=== PATIENT | female | born 1990 | race African-American/Black ===

== ENCOUNTER 2017-12-26 20:43 | Inpatient (IN) | payer MEDICAID ==
[~2017-12-26] VITALS: Ht 154.9 cm; Wt 79.0 kg
[2017-12-26 21:08] VITALS: BP 103/56
[2017-12-26] MEDS ORDERED: NEWBORN KIT ONE (22:20)
[2017-12-26] MEDS ORDERED: OXYTOCIN 30U/ 0.9% NaCL 500ML 500 ML IV ONE (22:21)
[2017-12-26] MEDS: LACTATED RINGERS 1,000 ML IV SCH ×2 (22:25→23:02)
[2017-12-26] MEDS ORDERED: CALCIUM CARBONATE 500 MG TAB.CHEW PO PRN (22:30)
[2017-12-26] MEDS ORDERED: FENTANYL PF 100 MCG/2ML IV PRN (22:30)
[2017-12-26] MEDS ORDERED: TERBUTALINE 1 MG/ML, 1ML IVPush PRN (22:30)
[2017-12-26] MEDS ORDERED: FENTANYL PF 100 MCG/2ML IVPush PRN (22:30)
[2017-12-26] MEDS ORDERED: FENTANYL/BUPIV./NS/PF 250 ML EPIDCONT SCH (22:37)
[2017-12-26] MEDS ORDERED: BUPIVACAINE 0.25% ONE (22:48)
[2017-12-26 22:59] LABS: MEAN CORPUSCULAR HEMOGLOBIN 27.4 pg (27.0-34.8); MEAN CORPUSCULAR HGB CONC 33.3 g/dL (32.4-35.8); MEAN CORPUSCULAR VOLUME 82.5 fL (80-100); MEAN PLATELET VOLUME 9.2 fL (7.4-10.4); PLATELET COUNT 155 x10^3/uL (130-400); RED BLOOD COUNT 4.17 x10^6/uL (3.82-5.3); RED CELL DISTRIBUTION WIDTH 13.8 % (9.6-15.2)
[2017-12-26 23:49] LABS: BASOPHILS # (AUTO) 0.01 x10^3/uL (0-0.1); BASOPHILS % (AUTO) 0 % (0-1); EOSINOPHILS # (AUTO) 0.09 x10^3/uL (0-0.4); EOSINOPHILS % (AUTO) 1 % (1-7); LYMPHOCYTES # (AUTO) 1.74 x10^3/uL (1-3.4); LYMPHOCYTES % (AUTO) 22 % (22-44); MD SCAN; MONOCYTES # (AUTO) 0.94 x10^3/uL (0.2-0.8); MONOCYTES % (AUTO) 12 % (2-9); NEUTROPHILS # (AUTO) 5.31 x10^3/uL (1.8-6.8); NEUTROPHILS % (AUTO) 66 % (42-75)
[2017-12-26] MEDS ORDERED: OXYTOCIN 30U/ 0.9% NaCL 500ML 500 ML ONE (23:52)
[2017-12-26] MEDS ORDERED: MISOPROSTOL 200 MCG TABLET ONE (23:52)
[2017-12-26] MEDS ORDERED: LIDOCAINE/PF 1%, 30ML ONE (23:52)
[2017-12-27] MEDS: LACTATED RINGERS 1,000 ML IV SCH ×3 (00:03→17:55)
[2017-12-27] MEDS: D5%-LACTATED RINGERS 1,000 ML IV SCH ×2 (03:59→17:57)
[2017-12-27] MEDS ORDERED: OXYTOCIN 30U/ 0.9% NaCL 500ML 500 ML IV PRN (07:37)
[2017-12-27] MEDS ORDERED: FENTANYL PF 500 MCG, BUPIVACAINE/PF 0.5%, 30ML 62.5 ML in SODIUM CHLORIDE 0.9% 177.5 ML EPIDCONT SCH (14:30)
[2017-12-27] MEDS ORDERED: ONDANSETRON 2MG/ML, 2ML ONE ×2 (14:59→22:52)
[2017-12-27] MEDS: ONDANSETRON 2MG/ML, 2ML IVPush PRN ×2 (15:03→22:55)
[2017-12-27] MEDS ORDERED: FENTANYL PF 100 MCG/2ML ONE (15:20)
[2017-12-27] MEDS ORDERED: BUPIVACAINE 0.25% ONE (15:20)
[2017-12-27] MEDS ORDERED: IBUPROFEN 600 MG TABLET ONE (22:52)
[2017-12-27] MEDS ORDERED: OXYTOCIN 30U/ 0.9% NaCL 500ML 500 ML ONE (22:52)
[2017-12-27] MEDS: OXYTOCIN 30U/ 0.9% NaCL 500ML 500 ML IV SCH (23:50)
[2017-12-28] VITALS (13 sets, daily range): BP systolic 73–108; BP diastolic 44–66
[2017-12-28] MEDS ORDERED: CALCIUM CARBONATE 500 MG TAB.CHEW PO PRN
[2017-12-28] MEDS ORDERED: OXYcodone/APAP 5/325MG TABLET PO PRN
[2017-12-28] MEDS ORDERED: ONDANSETRON 2MG/ML, 2ML IV PRN
[2017-12-28] MEDS ORDERED: MISOPROSTOL 200 MCG TABLET PR PRN
[2017-12-28] MEDS ORDERED: BISACODYL 10 MG SUPP PR PRN
[2017-12-28] MEDS: IBUPROFEN 600 MG TABLET PO PRN ×3 (00:22→16:34)
[2017-12-28 06:33] LABS: MEAN CORPUSCULAR HEMOGLOBIN 27.7 pg (27.0-34.8); MEAN CORPUSCULAR VOLUME 83.9 fL (80-100); MEAN PLATELET VOLUME 8.9 fL (7.4-10.4); PLATELET COUNT 143 x10^3/uL (130-400); RED BLOOD COUNT 3.14 x10^6/uL (3.82-5.3); RED CELL DISTRIBUTION WIDTH 14.2 % (9.6-15.2)
[2017-12-28 07:09] LABS: BASOPHILS % (AUTO) 0 % (0-1); EOSINOPHILS # (AUTO) 0.04 x10^3/uL (0-0.4); EOSINOPHILS % (AUTO) 0 % (1-7); LYMPHOCYTES # (AUTO) 0.95 x10^3/uL (1-3.4); LYMPHOCYTES % (AUTO) 7 % (22-44); MD SCAN; MONOCYTES # (AUTO) 1.29 x10^3/uL (0.2-0.8); MONOCYTES % (AUTO) 9 % (2-9); NEUTROPHILS # (AUTO) 11.74 x10^3/uL (1.8-6.8); NEUTROPHILS % (AUTO) 84 % (42-75)
[2017-12-28] MEDS ORDERED: LACTATED RINGERS 1,000 ML IVBOLUS ONE (09:00)
[2017-12-28 09:01] LABS: BASOPHILS % (AUTO) 0 % (0-1); EOSINOPHILS # (AUTO) 0.08 x10^3/uL (0-0.4); EOSINOPHILS % (AUTO) 1 % (1-7); LYMPHOCYTES # (AUTO) 0.92 x10^3/uL (1-3.4); LYMPHOCYTES % (AUTO) 7 % (22-44); MD NO; MEAN CORPUSCULAR HEMOGLOBIN 27.1 pg (27.0-34.8); MEAN CORPUSCULAR HGB CONC 33.3 g/dL (32.4-35.8); MEAN CORPUSCULAR VOLUME 81.3 fL (80-100); MEAN PLATELET VOLUME 8.8 fL (7.4-10.4); MONOCYTES # (AUTO) 1.23 x10^3/uL (0.2-0.8); MONOCYTES % (AUTO) 9 % (2-9); NEUTROPHILS # (AUTO) 11.22 x10^3/uL (1.8-6.8); NEUTROPHILS % (AUTO) 83 % (42-75); PLATELET COUNT 148 x10^3/uL (130-400); RED BLOOD COUNT 2.86 x10^6/uL (3.82-5.3); RED CELL DISTRIBUTION WIDTH 14.1 % (9.6-15.2)
[2017-12-28] MEDS: PRENATAL VIT/IRON/FA 1 EACH TABLET PO SCH (09:15)
[2017-12-28] MEDS: DOCUSATE 100 MG CAPSULE PO PRN ×2 (09:15→20:56)
[2017-12-28] MEDS: OXYTOCIN 30U/ 0.9% NaCL 500ML 500 ML IV SCH ×2 (11:25→19:50)
[2017-12-28] MEDS ORDERED: ADENOSINE 6 MG/2 ML ONE (15:59)
[2017-12-28 16:21] LABS: MEAN CORPUSCULAR HEMOGLOBIN 28.2 pg (27.0-34.8); MEAN CORPUSCULAR HGB CONC 33.9 g/dL (32.4-35.8); MEAN PLATELET VOLUME 8.6 fL (7.4-10.4); PLATELET COUNT 155 x10^3/uL (130-400); RED CELL DISTRIBUTION WIDTH 14.3 % (9.6-15.2)
[2017-12-28 16:32] LABS: BASOPHILS # (AUTO) 0.02 x10^3/uL (0-0.1); BASOPHILS % (AUTO) 0 % (0-1); EOSINOPHILS # (AUTO) 0.07 x10^3/uL (0-0.4); EOSINOPHILS % (AUTO) 1 % (1-7); LYMPHOCYTES # (AUTO) 1.29 x10^3/uL (1-3.4); LYMPHOCYTES % (AUTO) 11 % (22-44); MD SCAN; MONOCYTES # (AUTO) 1.04 x10^3/uL (0.2-0.8); MONOCYTES % (AUTO) 8 % (2-9); NEUTROPHILS # (AUTO) 9.91 x10^3/uL (1.8-6.8); NEUTROPHILS % (AUTO) 80 % (42-75)
[2017-12-28] MEDS: FERROUS GLUCONATE 324 MG TABLET PO SCH (16:34)
[2017-12-28] MEDS ORDERED: ADENOSINE 6 MG/2 ML IVPush ONE (22:30)
[2017-12-28] MEDS ORDERED: MORPHINE SULFATE 4 MG/ML, 1ML ONE (22:45)
[2017-12-28 23:32] LABS: ANION GAP 8 mmol/L (5-15); CALCIUM 8.5 mg/dL (8.5-10.1); CHLORIDE 111 mmol/L (98-107); CREATININE 0.58 mg/dL (0.55-1.02)
[2017-12-29] MEDS ORDERED: MAGNESIUM SULFATE 3 GM in SODIUM CHLORIDE 0.9% 100 ML IV ONE
[2017-12-29] MEDS ORDERED: POTASSIUM CHLORIDE 20 MEQ in SODIUM CHLORIDE 0.9% 250 ML IV ONE
[2017-12-29 00:27] VITALS: BP 100/55
[2017-12-29] MEDS: IBUPROFEN 600 MG TABLET PO PRN ×2 (02:40→17:31)
[2017-12-29] MEDS: OXYTOCIN 30U/ 0.9% NaCL 500ML 500 ML IV SCH ×2 (05:19→15:50)
[2017-12-29 06:05] LABS: CHLORIDE 108 mmol/L (98-107)
[2017-12-29 06:10] LABS: ANION GAP 8 mmol/L (5-15); CALCIUM 8.5 mg/dL (8.5-10.1)
[2017-12-29 07:43] VITALS: BP 98/60
[2017-12-29] MEDS: PRENATAL VIT/IRON/FA 1 EACH TABLET PO SCH (08:28)
[2017-12-29] MEDS: FERROUS GLUCONATE 324 MG TABLET PO SCH ×2 (08:28→17:32)
[2017-12-29] MEDS ORDERED: POTASSIUM CHLORIDE 20 MEQ TAB.ER.PRT ONE (08:30)
[2017-12-29] MEDS ORDERED: POTASSIUM CHLORIDE 20 MEQ TAB.ER.PRT PO ONE (08:30)
[2017-12-29 14:04] VITALS: BP 94/58
[2017-12-29] MEDS ORDERED: PREN1TAB98 PO (14:30)
[2017-12-29] MEDS ORDERED: DOCU100C33 PO (14:31)
[2017-12-29] MEDS ORDERED: IBUP-1222 PO (14:32)
[2017-12-29] MEDS ORDERED: FERR325T23 PO (14:33)
[2017-12-29] MEDS ORDERED: DIPH,PERTUSS(ACELL),TET VAC/PF NC IM-VACC ONE (17:30)
== END 2017-12-29 14:56 | disposition home or self-care (01) | DRG 774 ==
LOC: LDOP 20:43 → LDIP 22:15 → 2NW 12-28 00:55 → 5SO 12-29 00:40
PROVIDERS: ADMIT Obstetrics & Gynecology; ATTEND Obstetrics & Gynecology
PROC: 0KQM0ZZ Repair Perineum Muscle, Open Approach (ICD-10-PCS; principal; 2017-12-27)
PROC: 10E0XZZ Delivery of Products of Conception, External Approach (ICD-10-PCS; 2017-12-27)
PROC: 10907ZC Drainage of Amniotic Fluid, Therapeutic from Products of Conception, Via Natural or Artificial Opening (ICD-10-PCS; 2017-12-27)
PROC: 3E033VJ Introduction of Other Hormone into Peripheral Vein, Percutaneous Approach (ICD-10-PCS; 2017-12-27)
PROC: 3E0R3BZ Introduction of Anesthetic Agent into Spinal Canal, Percutaneous Approach (ICD-10-PCS; 2017-12-27)
PROC: 00HU33Z Insertion of Infusion Device into Spinal Canal, Percutaneous Approach (ICD-10-PCS; 2017-12-27)
DX: O99.42 Diseases of the circulatory system complicating childbirth (principal); D62 Acute posthemorrhagic anemia; I47.1 Supraventricular tachycardia; O36.63X0 Maternal care for excessive fetal growth, third trimester, not applicable or unspecified; O75.89 Other specified complications of labor and delivery; O66.0 Obstructed labor due to shoulder dystocia; O90.81 Anemia of the puerperium; I95.9 Hypotension, unspecified; D56.0 Alpha thalassemia; I45.6 Pre-excitation syndrome; Z3A.40 40 weeks gestation of pregnancy; O70.1 Second degree perineal laceration during delivery; Z83.3 Family history of diabetes mellitus; Z37.0 Single live birth; Z84.1 Family history of disorders of kidney and ureter
CPT/HCPCS: 36415; J7121; 80048; 82803; 83735; 85025; 86850; 86900; 90715; 93306; J0153; J2405; J3010; J3475; J3480; J3490; J2590; J7050; J7120

== ENCOUNTER → 2018-02-05 | Outpatient (CLI) | payer MEDICAID ==
[~2018-02-05] MED LIST: DOCU100C33 PO; FERR325T23 PO; IBUP-1222 PO; PREN1TAB98 PO; SENN1TAB67 PO
[2018-02-05 09:39] LABS: BASOPHILS # (AUTO) 0.01 x10^3/uL (0-0.1); BASOPHILS % (AUTO) 0 % (0-1); EOSINOPHILS % (AUTO) 2 % (1-7); LYMPHOCYTES # (AUTO) 2.11 x10^3/uL (1-3.4); LYMPHOCYTES % (AUTO) 42 % (22-44); MD NO; MEAN CORPUSCULAR HEMOGLOBIN 25.9 pg (27.0-34.8); MEAN CORPUSCULAR HGB CONC 32.7 g/dL (32.4-35.8); MEAN CORPUSCULAR VOLUME 79.3 fL (80-100); MEAN PLATELET VOLUME 8.5 fL (7.4-10.4); MONOCYTES # (AUTO) 0.43 x10^3/uL (0.2-0.8); MONOCYTES % (AUTO) 9 % (2-9); NEUTROPHILS # (AUTO) 2.39 x10^3/uL (1.8-6.8); NEUTROPHILS % (AUTO) 47 % (42-75); PLATELET COUNT 250 x10^3/uL (130-400); RED BLOOD COUNT 4.76 x10^6/uL (3.82-5.3)
[2018-02-05 09:52] LABS: ALANINE AMINOTRANSFERASE 21 U/L (12-78); ALBUMIN 3.8 g/dL (3.4-5.0); ANION GAP 7 mmol/L (5-15); CALCIUM 8.8 mg/dL (8.5-10.1); CHLORIDE 109 mmol/L (98-107); CREATININE 0.65 mg/dL (0.55-1.02)
[2018-02-05 09:54] LABS: ALKALINE PHOSPHATASE 90 U/L (45-117); BILIRUBIN,TOTAL 0.5 mg/dL (0.2-1.0); TOTAL PROTEIN 7.7 g/dL (6.4-8.2)
[2018-02-05 09:57] LABS: INTERNATIONAL NORMALIZED RATIO 1.02 (0.93-1.1); PROTHROMBIN TIME 10.6 Seconds (9.6-11.5)
== END | disposition home or self-care (01) ==
LOC: STAR 08:19
PROVIDERS: ATTEND Internal Medicine Cardiovascular Disease
DX: Z01.818 Encounter for other preprocedural examination (principal); I47.1 Supraventricular tachycardia; J30.9 Allergic rhinitis, unspecified; R00.2 Palpitations; R42 Dizziness and giddiness; I45.6 Pre-excitation syndrome
CPT/HCPCS: 36415; 71046; 80053; 85025; 85610

== ENCOUNTER 2018-02-10 06:27 | Day surgery (SDC) | payer MEDICAID ==
[2018-02-05 08:58] VITALS: BP 111/71
[~2018-02-10] VITALS: Ht 154.9 cm; Wt 69.5 kg
[2018-02-10] MEDS ORDERED: SODIUM CHLORIDE 0.9% 1,000 ML IV SCH (06:33)
[2018-02-10] MEDS ORDERED: FENTANYL PF 250 MCG/5ML ONE (07:57)
[2018-02-10] MEDS ORDERED: MIDAZOLAM 1 MG/ML, 2ML ONE (07:57)
[2018-02-10] MEDS ORDERED: PHENYLEPHRINE 10 MG/ML ONE (08:46)
[2018-02-10] MEDS ORDERED: ROCURONIUM 10 MG/ML,10ML ONE (08:46)
[2018-02-10] MEDS ORDERED: ONDANSETRON 2MG/ML, 2ML ONE (08:46)
[2018-02-10] MEDS ORDERED: PROPOFOL 50 ML ONE ×2 (10:31→11:58)
[2018-02-10] MEDS ORDERED: FENTANYL PF 100 MCG/2ML ONE (12:43)
[2018-02-10] MEDS ORDERED: MIDAZOLAM 1 MG/ML, 2ML IV PRN (13:00)
[2018-02-10] MEDS ORDERED: ONDANSETRON ODT 8 MG PO PRN (13:00)
[2018-02-10] MEDS ORDERED: ONDANSETRON 2MG/ML, 2ML IV PRN (13:00)
[2018-02-10] MEDS ORDERED: FENTANYL PF 100 MCG/2ML IV PRN (13:00)
[2018-02-10] MEDS ORDERED: OXYcodone 5 MG/5 ML ORAL.SOL UDC PO PRN (13:00)
[2018-02-10] MEDS ORDERED: PROMETHAZINE 12.5 MG SUPP PR PRN (13:00)
[2018-02-10] MEDS ORDERED: PROMETHAZINE 25 MG/ML, 1ML IV PRN (13:00)
[2018-02-10] MEDS ORDERED: ACETAMINOPHEN 325 MG TABLET PO PRN ×2 (13:00)
[2018-02-10] MEDS ORDERED: PROMETHAZINE 25 MG SUPP PR PRN (13:00)
[2018-02-10] MEDS ORDERED: DIPHENHYDRAMINE 50 MG/ML, 1ML IVPush PRN (13:00)
[2018-02-10] MEDS ORDERED: MEPERIDINE/PF 25MG/0.5ML IVPush PRN (13:00)
[2018-02-10] MEDS ORDERED: EPHEDRINE 50 MG/ML, 1ML IM PRN (13:00)
[2018-02-10] MEDS ORDERED: MORPHINE SULFATE 4 MG/ML, 1ML IVPush PRN (13:00)
[2018-02-10] MEDS ORDERED: ACETAMINOPHEN 325 MG TABLET ONE (14:52)
[2018-02-11] MEDS ORDERED: [UNRECOGNIZED DRUG - REMARK] HOMEMEDPO SCH (09:00)
[2018-02-11] MEDS ORDERED: SENNA/DOCUSATE TABLET PO SCH (09:00)
== END 2018-02-10 17:09 | disposition home or self-care (01) ==
LOC: CACL 06:27
PROVIDERS: ATTEND Internal Medicine Cardiovascular Disease
DX: I47.1 Supraventricular tachycardia (principal); G20 Parkinson's disease; I45.6 Pre-excitation syndrome
CPT/HCPCS: 36415; 84703; 93613; 93621; 93653; C1730; C1766; C1894; C2630; J2250; J2370; J2405; J2704; J3010

== ENCOUNTER 2019-06-26 06:06 | Inpatient (IN) | payer OTHER, MEDICAID ==
[~2019-06-26] VITALS: Ht 154.9 cm; Wt 83.6 kg
[2019-06-26] MEDS ORDERED: MISOPROSTOL 200 MCG TABLET ONE (06:18)
[2019-06-26] MEDS ORDERED: NEWBORN KIT ONE (06:18)
[2019-06-26] MEDS ORDERED: OXYTOCIN 30U/ 0.9% NaCL 500ML 500 ML ONE ×2 (06:18→23:53)
[2019-06-26] MEDS ORDERED: LIDOCAINE 1%, 20ML ONE (06:18)
[2019-06-26] MEDS ORDERED: OXYTOCIN 30U/ 0.9% NaCL 500ML 500 ML IV ONE (06:23)
[2019-06-26] MEDS ORDERED: OXYTOCIN 30U/ 0.9% NaCL 500ML 500 ML IV PRN (06:23)
[2019-06-26] MEDS ORDERED: D5%-LACTATED RINGERS 1,000 ML IV SCH (06:23)
[2019-06-26] MEDS ORDERED: FENTANYL PF 100 MCG/2ML IV PRN (06:30)
[2019-06-26] MEDS ORDERED: TERBUTALINE 1 MG/ML, 1ML IVPush PRN (06:30)
[2019-06-26] MEDS ORDERED: ONDANSETRON 2MG/ML, 2ML IVPush PRN (06:30)
[2019-06-26] MEDS ORDERED: TERBUTALINE 1 MG/ML, 1ML SQ PRN (06:30)
[2019-06-26] MEDS ORDERED: FENTANYL PF 100 MCG/2ML IVPush PRN (06:30)
[2019-06-26] MEDS ORDERED: CALCIUM CARBONATE 500 MG TAB.CHEW PO PRN (06:30)
[2019-06-26] MEDS: LACTATED RINGERS 1,000 ML IV SCH ×3 (06:41→15:55)
[2019-06-26 06:49] LABS: BASOPHILS # (AUTO) 0.01 x10^3/uL (0-0.1); BASOPHILS % (AUTO) 0 % (0-1); EOSINOPHILS # (AUTO) 0.04 x10^3/uL (0-0.4); EOSINOPHILS % (AUTO) 1 % (1-7); LYMPHOCYTES # (AUTO) 1.27 x10^3/uL (1-3.4); LYMPHOCYTES % (AUTO) 20 % (22-44); MD NO; MEAN CORPUSCULAR HEMOGLOBIN 26.9 pg (27.0-34.8); MEAN CORPUSCULAR HGB CONC 32.7 g/dL (32.4-35.8); MEAN CORPUSCULAR VOLUME 82.3 fL (80-100); MEAN PLATELET VOLUME 9.2 fL (7.4-10.4); MONOCYTES % (AUTO) 11 % (2-9); NEUTROPHILS # (AUTO) 4.46 x10^3/uL (1.8-6.8); NEUTROPHILS % (AUTO) 69 % (42-75); PLATELET COUNT 171 x10^3/uL (130-400); RED BLOOD COUNT 4.42 x10^6/uL (3.82-5.3); RED CELL DISTRIBUTION WIDTH 13.7 % (9.6-15.2)
[2019-06-26] MEDS ORDERED: FENTANYL/BUPIV./NS/PF 250 ML EPIDCONT SCH ×2 (08:29→16:15)
[2019-06-26] MEDS ORDERED: FENTANYL PF 500 MCG, BUPIVACAINE/PF 0.5%, 30ML 62.5 ML in SODIUM CHLORIDE 0.9% 177.5 ML EPIDCONT SCH ×2 (09:00→16:30)
[2019-06-26] MEDS ORDERED: BUPIVACAINE 0.25% ONE (09:37)
[2019-06-26] MEDS ORDERED: EPHEDRINE 50 MG/ML, 1ML IVPush PRN (16:30)
[2019-06-26] MEDS ORDERED: ACETAMINOPHEN 325 MG TABLET ONE (16:41)
[2019-06-26] MEDS: ACETAMINOPHEN 325 MG TABLET PO PRN (16:44)
[2019-06-26] MEDS ORDERED: LACTATED RINGERS 1,000 ML IVBOLUS PRN (17:00)
[2019-06-26] MEDS ORDERED: LACTATED RINGERS 1,000 ML IV SCH (17:00)
[2019-06-26] MEDS ORDERED: ONDANSETRON 2MG/ML, 2ML ONE (21:25)
[2019-06-27] MEDS ORDERED: DEXTROSE 47%, 15GM GEL ONE (00:15)
[2019-06-27 01:40] VITALS: BP 111/71
[2019-06-27] MEDS: OXYTOCIN 30U/ 0.9% NaCL 500ML 500 ML IV SCH ×3 (01:45→21:45)
[2019-06-27] MEDS ORDERED: MISOPROSTOL 200 MCG TABLET PR PRN (02:00)
[2019-06-27] MEDS ORDERED: ACETAMINOPHEN 325 MG TABLET PO PRN (02:00)
[2019-06-27] MEDS ORDERED: SIMETHICONE 80 MG CHEW TAB PO PRN (02:00)
[2019-06-27] MEDS: IBUPROFEN 600 MG TABLET PO PRN ×4 (04:49→23:49)
[2019-06-27 05:30] VITALS: BP 112/71
[2019-06-27 06:58] LABS: BASOPHILS # (AUTO) 0.02 x10^3/uL (0-0.1); BASOPHILS % (AUTO) 0 % (0-1); EOSINOPHILS # (AUTO) 0.05 x10^3/uL (0-0.4); EOSINOPHILS % (AUTO) 1 % (1-7); LYMPHOCYTES # (AUTO) 1.12 x10^3/uL (1-3.4); LYMPHOCYTES % (AUTO) 12 % (22-44); MD NO; MEAN CORPUSCULAR HGB CONC 32.9 g/dL (32.4-35.8); MEAN PLATELET VOLUME 8.9 fL (7.4-10.4); MONOCYTES # (AUTO) 0.77 x10^3/uL (0.2-0.8); MONOCYTES % (AUTO) 8 % (2-9); NEUTROPHILS # (AUTO) 7.57 x10^3/uL (1.8-6.8); NEUTROPHILS % (AUTO) 80 % (42-75); PLATELET COUNT 139 x10^3/uL (130-400); RED BLOOD COUNT 3.86 x10^6/uL (3.82-5.3); RED CELL DISTRIBUTION WIDTH 14.1 % (9.6-15.2)
[2019-06-27] MEDS: PRENATAL VIT/IRON/FA 1 EACH TABLET PO SCH (07:40)
[2019-06-27] MEDS: DOCUSATE 100 MG CAPSULE PO PRN ×2 (07:40→17:15)
[2019-06-27] MEDS: ACETAMINOPHEN 325 MG TABLET PO PRN (07:40)
[2019-06-27 08:19] VITALS: BP 100/64
[2019-06-27 13:00] VITALS: BP 103/67
[2019-06-27 19:45] VITALS: BP 98/63
[2019-06-28] MEDS ORDERED: HYDROCORTISONE CRM 1%, 30GM TP PRN (06:00)
[2019-06-28 08:04] VITALS: BP 103/68
[2019-06-28] MEDS: IBUPROFEN 600 MG TABLET PO PRN ×2 (09:05→15:44)
[2019-06-28] MEDS: DOCUSATE 100 MG CAPSULE PO PRN (09:05)
[2019-06-28] MEDS: PRENATAL VIT/IRON/FA 1 EACH TABLET PO SCH (09:05)
[2019-06-28] MEDS ORDERED: IBUP-1222 PO (15:32)
[2019-06-28] MEDS: ACETAMINOPHEN 325 MG TABLET PO PRN (15:45)
== END 2019-06-28 16:46 | disposition home or self-care (01) | DRG 807 ==
LOC: OBSVTOIN 06:06 → INTOOBSV 06:06 → LDIP 06:06 → 2NW 06-27 01:28
PROVIDERS: ADMIT Obstetrics & Gynecology; ATTEND Obstetrics & Gynecology
PROC: 10E0XZZ Delivery of Products of Conception, External Approach (ICD-10-PCS; principal; 2019-06-27)
PROC: 0HQ9XZZ Repair Perineum Skin, External Approach (ICD-10-PCS; 2019-06-27)
PROC: 10907ZC Drainage of Amniotic Fluid, Therapeutic from Products of Conception, Via Natural or Artificial Opening (ICD-10-PCS; 2019-06-27)
PROC: 3E033VJ Introduction of Other Hormone into Peripheral Vein, Percutaneous Approach (ICD-10-PCS; 2019-06-27)
PROC: 3E0R3BZ Introduction of Anesthetic Agent into Spinal Canal, Percutaneous Approach (ICD-10-PCS; 2019-06-27)
PROC: 00HU33Z Insertion of Infusion Device into Spinal Canal, Percutaneous Approach (ICD-10-PCS; 2019-06-27)
DX: O24.420 Gestational diabetes mellitus in childbirth, diet controlled (principal); Z37.0 Single live birth; O66.0 Obstructed labor due to shoulder dystocia; D56.0 Alpha thalassemia; O70.0 First degree perineal laceration during delivery; O99.02 Anemia complicating childbirth; Z3A.39 39 weeks gestation of pregnancy; Z83.3 Family history of diabetes mellitus; Z84.1 Family history of disorders of kidney and ureter; Z86.74 Personal history of sudden cardiac arrest
CPT/HCPCS: 36415; 82947; 82962; 85025; 86592; 86850; 86900; G0378; J2405; J2590; J7120